=== PATIENT | male | born 1955 | race Two or more races ===

== ENCOUNTER 2019-08-28 11:08 | Emergency (ER) | payer MEDICAID, OTHER ==
[~2019-08-28] VITALS: Ht 175.3 cm; Wt 77.1 kg
[2019-08-28 11:10] VITALS: BP 142/70
--- NOTE | 2019-08-28 11:11 | NUR ---
ED Nurse Note: Patient brought in by ambulance from the streets c/o AMs. patient was found in the streets with several cans of beer on his side. at time of arrival patient is coherent and is able to talk. Able to walk with a steady gait and is able to follow directions. patient is alert and oriented x4, patient placed in a room, will continue to monitor
[2019-08-28 11:15] VITALS: BP 135/65
--- NOTE | 2019-08-28 11:15 | NUR ---
Homeless Discharge: Patient is being discharged from medical care. Awake, alert and oriented x3. After care instructions, including referral to community resources were given. Patient verbalized understanding of After care instructions; at this time patient does not request medications, equipment or placement. Patient signed patient consent in the medical record for patient destination upon discharge. All medical devices such as IV and ID band were removed. Patient ambulated out with all personal belongings with steady gait.
--- NOTE | 2019-08-28 12:48 | Emergency Room Report ---
History of Present Illness General Chief Complaint: Altered Mental Status Source: Patient, EMS Present Illness HPI Patient has history of alcohol abuse. Patient was sitting on the street and asking bystanders with alcohol. As result EMS contact me by the patient. Initially patient appears slightly intoxicated. However as patient arrived here patient was much more comfortable. He is back to baseline is ambulate without difficulties requesting alcohol. He denies any other complaints. Declines any medication or any treatment. She declines any food at this time. Requesting to be discharged. No other complaints are noted. Patient does appear disheveled. Patient admits to drinking. But he wants to continue to drink. He does not want further treatment. No other modifying factors. No other associated signs and symptoms. No other complaints were noted. Allergies: Coded Allergies: MORPHINE (Unverified Allergy, Unknown, 01/30/12) Patient History Past Medical History: none Past Surgical History: none Social History: Reports: alcohol use Reviewed Nursing Documentation: PMH: Agreed; PSxH: Agreed Nursing Documentation-PMH Past Medical History: No Stated History Review of Systems All Other Systems: negative except mentioned in HPI Physical Exam Vital Signs Date Time Temp Pulse Resp B/P (MAP) Pulse Ox O2 Delivery O2 Flow Rate FiO2 08/28/19 11:02 98.1 104 17 160/84 (109) 98 Room Air Sp02 EP Interpretation: reviewed, normal General Appearance: normal inspection, alert, other - Disheveled. Nontoxic- appearing. Head: atraumatic Eyes: bilateral eye normal inspection ENT: hearing grossly normal, normal voice Neck: supple Respiratory: lungs clear, normal breath sounds, no respiratory distress, no wheezing Cardiovascular #1: regular rate, rhythm, no edema Gastrointestinal: non tender, soft, no guarding, no hernia Genitourinary: no CVA tenderness Neurologic: normal inspection, alert, responsive, speech normal Psychiatric: no suicidal/homicidal ideation, other - Poor judgment Skin: no rash - On exposed body Medical Decision Making Diagnostic Impression: Primary Impression: Alcohol abuse ER Course Patient presents emergency department today complaining of alcohol abuse. Patient was noted to be initially altered from alcohol but now is back to baseline appears to be clinically sober. He is requesting be discharged. Given the patient has no medical complaint at this time is ambulate without difficulty he was given discharge instructions. He was given resources. Per our homeless discharge. Advised to return emergency room for any worsening symptoms and as needed. Last Vital Signs Date Time Temp Pulse Resp B/P (MAP) Pulse Ox O2 Delivery O2 Flow Rate FiO2 08/28/19 11:02 98.1 104 17 160/84 (109) 98 Room Air Disposition: HOME, SELF-CARE Condition: Stable Referrals: [facility],REFERRING (PCP) Patient Instructions: Alcohol Intoxication, [id number] Wilmer Long MD Aug 28, 2019 12:48
== END 2019-08-28 11:15 | disposition home or self-care (01) ==
LOC: EDBD 11:08 → EMR 11:14
DX: F10.10 Alcohol abuse, uncomplicated (principal); Z88.6 Allergy status to analgesic agent
CPT/HCPCS: 99282